=== PATIENT | male | born 1995 | race Caucasian/White ===

== ENCOUNTER 2017-04-02 02:48 | Emergency (ER) | payer OTHER ==
[~2017-04-02 02:48] MED LIST: KEP500 PO
[2017-04-02 03:59] VITALS: BP 125/93
== END 2017-04-02 03:59 | disposition home or self-care (01) ==
LOC: ED 02:48
DX: L50.0 Allergic urticaria (principal)

== ENCOUNTER → 2017-04-13 | Outpatient (CLI) | payer OTHER ==
[2017-04-13 10:30] LABS: ALBUMIN 4.2 g/dL (3.4-5.0); ALKALINE PHOSPHATASE 73 U/L (46-116); ALT/SGPT 92 U/L (16-63); AST/SGOT 37 U/L (15-37); BASOPHIL % 0.8 % (0-2); BILIRUBIN DIRECT 0.06 mg/dL (0.0-0.2); BILIRUBIN TOTAL 0.41 mg/dL (0.20-1.00); CALCIUM 8.9 mg/dL (8.5-10.1); CARBON DIOXIDE 30.4 mmol/L (21-32); CHLORIDE SERUM 104 mmol/L (98-107); CREATININE SERUM 1.1 mg/dL (0.7-1.3); GFR1 > 60 mL/min; GLUCOSE SERUM 89 mg/dL (74-106); HDL CHOLESTEROL 48 mg/dL (40-60); PLATELET COUNT 266 x10^3mcL (130-400); POTASSIUM SERUM 4.2 mmol/L (3.5-5.1); RED CELL DISTRIBUTION WIDTH 11.5 % (11.5-14.5); SODIUM SERUM 140 mmol/L (136-145); TOTAL PROTEIN, SERUM 7.8 g/dL (6.4-8.2); TRIGLYCERIDES 114 mg/dL (<150)
[2017-04-13 10:32] LABS: CHOLESTEROL 133 mg/dL (<200); CHOLESTEROL/HDL RATIO 2.8
== END | disposition home or self-care (01) ==
LOC: LB 09:49
PROVIDERS: Internal Medicine
DX: Z00.00 Encounter for general adult medical examination without abnormal findings (principal); M79.605 Pain in left leg; M79.604 Pain in right leg
CPT/HCPCS: 86431

== ENCOUNTER → 2017-10-17 | Outpatient (CLI) | payer OTHER ==
[2017-10-17 12:42] LABS: ALBUMIN 4.3 g/dL (3.4-5.0); ALKALINE PHOSPHATASE 70 U/L (46-116); ALT/SGPT 176 U/L (16-63); AST/SGOT 36 U/L (15-37); BILIRUBIN TOTAL 0.5 mg/dL (0.20-1.00); CALCIUM 8.9 mg/dL (8.5-10.1); CARBON DIOXIDE 29.1 mmol/L (21-32); CHLORIDE SERUM 105 mmol/L (98-107); CREATININE SERUM 0.9 mg/dL (0.7-1.3); GFR1 > 60 mL/min; GLUCOSE SERUM 101 mg/dL (74-106); POTASSIUM SERUM 3.7 mmol/L (3.5-5.1); SODIUM SERUM 137 mmol/L (136-145); TOTAL PROTEIN, SERUM 7.4 g/dL (6.4-8.2)
[2017-10-17 12:47] LABS: TOTAL IRON BINDING CAPACITY 323 ug/dL (250-450)
[2017-10-17 12:51] LABS: IRON 180 ug/dL (65-170); T3 TOTAL 1.02 ng/mL
[2017-10-17 12:56] LABS: FREE T4 0.9 ng/dL (0.76-1.46); FREE THYROXINE INDEX 2.4 ug/dL (1.4-4.5); T4(THYROXINE) 6.8 ug/dL (4.7-13.3)
== END | disposition home or self-care (01) ==
LOC: LB 11:08
PROVIDERS: Dermatology
DX: L63.9 Alopecia areata, unspecified (principal); L20.9 Atopic dermatitis, unspecified; L28.0 Lichen simplex chronicus
CPT/HCPCS: 84439

== ENCOUNTER → 2017-12-22 | Outpatient (CLI) | payer OTHER | END | disposition home or self-care (01) | LOC: MI 10:05 | DX: M25.512 Pain in left shoulder (principal); M25.511 Pain in right shoulder; M25.811 Other specified joint disorders, right shoulder; M25.812 Other specified joint disorders, left shoulder ==